=== PATIENT | male | born 2000 | race Caucasian/White ===

== ENCOUNTER 2023-07-15 19:21 | Inpatient (IN) | payer OTHER ==
[~2023-07-15] VITALS: Ht 182.9 cm; Wt 65.3 kg
[2023-07-15 20:27] LABS: BASOPHILS % (AUTO) 0.4 % (0.0-2.0); EOSINOPHILS % (AUTO) 0.7 % (1.0-6.0); HEMATOCRIT 47.2 % (41-53); HEMOGLOBIN 16.2 g/dL (13.5-17.5); LYMPHOCYTES % (AUTO) 21.3 % (22.0-44.0); MEAN CORPUSCULAR HEMOGLOBIN 29.8 pg (26.0-34.0); MEAN CORPUSCULAR HGB CONC 34.3 G/dL (31.0-37.0); MEAN CORPUSCULAR VOLUME 87 fL (80-100); MONOCYTES # (AUTO) 0.7 K/uL (0.1-1.0); MONOCYTES % (AUTO) 7.8 % (2.0-9.0); NEUTROPHILS # (AUTO) 6.6 K/uL (1.8-7.7); NEUTROPHILS % (AUTO) 69.8 % (40.0-70.0); PLATELET COUNT (AUTO) 285 K/uL (150-450); RED BLOOD CELL COUNT(AUTO) 5.44 MIL/uL (4.50-5.90); RED CELL DISTRIBUTION WIDTH 12.4 % (11.5-14.5); WHITE BLOOD COUNT (AUTO) 9.4 K/uL (4.5-11.0)
[2023-07-15] MEDS ORDERED: ACETAMINOPHEN 325 MG TABLET PO PRN (20:30)
[2023-07-15] MEDS ORDERED: ONDANSETRON HCL 4 MG/2 ML VIAL IVP PRN (20:30)
[2023-07-15 20:37] LABS: ANION GAP 8 mmol/L (8-16); CALCIUM, TOTAL 9.2 mg/dL (8.8-10.5); CARBON DIOXIDE 29 mmol/L (22-29); CHLORIDE 101 mmol/L (98-107); CREATININE 0.99 mg/dL (0.60-1.30); GLOMERULAR FILTR. RATE CALC > 60 mL/min (>60); GLUCOSE,RANDOM 89 mg/dL (70-110); POTASSIUM 4.2 mmol/L (3.5-5.1); SODIUM SERUM 138 mmol/L (136-145); UREA NITROGEN, BLOOD 14 mg/dL (7-18)
[2023-07-15 20:42] LABS: ALANINE AMINOTRANSFERASE 28 U/L (12-78); ALBUMIN 4.5 g/dL (3.4-5.0); ALKALINE PHOSPHATASE 110 U/L (46-116); ASPARTATE AMINOTRANSFERASE 16 U/L (15-37); BILIRUBIN,TOTAL 0.6 mg/dL (0.1-1.0); TOTAL PROTEIN, SERUM 8.6 g/dL (6.4-8.2)
[2023-07-15 20:48] LABS: COVID AG,FIA SOURCE NASAL SWAB
[2023-07-15] MEDS: DOCUSATE SODIUM 100 MG CAPSULE PO SCH (21:00)
[2023-07-15 21:09] LABS: SARS-COV2 (COVID) ANTIGEN,FIA Negative (Negative)
[2023-07-15] MEDS: HEPARIN SODIUM,PORCINE 5,000 UNITS/ML VIAL SQ SCH (23:16)
[2023-07-16] MEDS ORDERED: SODIUM CHLORIDE 3% 15 ML NEB SOLUTION NEB ONE (07:07)
[2023-07-16 07:56] LABS: BASOPHILS % (AUTO) 0.6 % (0.0-2.0); EOSINOPHILS % (AUTO) 2.2 % (1.0-6.0); HEMATOCRIT 47.7 % (41-53); HEMOGLOBIN 16.4 g/dL (13.5-17.5); LYMPHOCYTES # (AUTO) 2.2 K/uL (1.0-4.8); LYMPHOCYTES % (AUTO) 29.2 % (22.0-44.0); MEAN CORPUSCULAR HEMOGLOBIN 29.7 pg (26.0-34.0); MEAN CORPUSCULAR HGB CONC 34.3 G/dL (31.0-37.0); MEAN CORPUSCULAR VOLUME 87 fL (80-100); MONOCYTES # (AUTO) 0.7 K/uL (0.1-1.0); MONOCYTES % (AUTO) 8.8 % (2.0-9.0); NEUTROPHILS # (AUTO) 4.5 K/uL (1.8-7.7); NEUTROPHILS % (AUTO) 59.2 % (40.0-70.0); PLATELET COUNT (AUTO) 257 K/uL (150-450); RED BLOOD CELL COUNT(AUTO) 5.51 MIL/uL (4.50-5.90); RED CELL DISTRIBUTION WIDTH 12.8 % (11.5-14.5); WHITE BLOOD COUNT (AUTO) 7.5 K/uL (4.5-11.0)
[2023-07-16 08:06] LABS: ANION GAP 6 mmol/L (8-16); CARBON DIOXIDE 30 mmol/L (22-29); CHLORIDE 103 mmol/L (98-107); CREATININE 1.07 mg/dL (0.60-1.30); GLOMERULAR FILTR. RATE CALC > 60 mL/min (>60); GLUCOSE,RANDOM 94 mg/dL (70-110); POTASSIUM 4.1 mmol/L (3.5-5.1); SODIUM SERUM 139 mmol/L (136-145); UREA NITROGEN, BLOOD 11 mg/dL (7-18)
[2023-07-16 11:55] VITALS: BP 115/67; PULSE 70; RESP 18; TEMP 97.8
[2023-07-16 19:48] VITALS: BP 133/79; PULSE 80; RESP 18; TEMP 97.9
[2023-07-17 01:29] VITALS: BP 104/61; PULSE 60; RESP 18; TEMP 98.3
[2023-07-17 03:06] LABS: HIV 1-2 SCREEN 4TH GEN W/RFLX Non Reactive (Non Reactive)
[2023-07-17 04:40] VITALS: BP 107/72; PULSE 61; RESP 18; TEMP 97.7
[2023-07-17 08:00] VITALS: BP 112/66; PULSE 68; RESP 18; TEMP 98.2
[2023-07-17 13:12] LABS: MTB PCR w/Rif. Resistance-SPUT NOT DETECTED (Not Detectd)
[2023-07-17 14:06] LABS: QUANTIFERON+, Nil Value 0.08 IU/mL; QUANTIFERON+,Mitogen Value >10.00 IU/mL; QUANTIFERON+,TB1 Antigen Value 1.23 IU/mL; QUANTIFERON+,TB2 Antigen Value 1.54 IU/mL; QUANTIFERON, TB GOLD PLUS Positive (Negative)
[2023-07-17 16:51] VITALS: BP 112/69; PULSE 67; RESP 19; TEMP 97.6
[2023-07-17 20:33] VITALS: BP 154/77; PULSE 71; RESP 19; TEMP 98
[2023-07-17 23:28] VITALS: BP 100/57; PULSE 60; RESP 18; TEMP 97.7
[2023-07-18 05:12] VITALS: BP 102/57; PULSE 64; RESP 1; TEMP 97.8
[2023-07-18 08:00] VITALS: BP 117/68; PULSE 75; RESP 18; TEMP 98
[2023-07-18 17:15] VITALS: BP 118/69; PULSE 71; RESP 18; TEMP 98
[2023-07-18 20:31] VITALS: BP 107/67; PULSE 64; RESP 18; TEMP 97.8
[2023-07-19 00:26] VITALS: BP 99/62; PULSE 53; RESP 18; TEMP 97.7
[2023-07-19 05:35] VITALS: BP 95/53; PULSE 60; RESP 18; TEMP 98.1
[2023-07-19 09:27] VITALS: BP 100/73; PULSE 78; RESP 17; TEMP 97.8
[2023-07-19 11:35] VITALS: BP 119/63; PULSE 87; RESP 18; TEMP 98
[2023-07-19 18:17] VITALS: BP 117/79; PULSE 84; RESP 17; TEMP 98.4
[2023-07-19 20:29] VITALS: BP 103/66; PULSE 66; RESP 17; TEMP 98.1
[2023-07-20 00:10] VITALS: BP 99/68; PULSE 62; RESP 18; TEMP 97.8
[2023-07-20 05:32] VITALS: BP 105/64; PULSE 57; RESP 18; TEMP 97.5
[2023-07-20 09:50] VITALS: BP 110/67; PULSE 58; RESP 19; TEMP 98
[2023-07-20 11:56] VITALS: BP 106/58; PULSE 66; RESP 18; TEMP 98.8
[2023-07-20 15:00] VITALS: BP 111/62; PULSE 71; RESP 17; TEMP 98
[2023-07-20] MEDS: RIFAMPIN 300 MG CAPSULE PO SCH (15:27)
[2023-07-20] MEDS: ISONIAZID 300 MG TABLET PO SCH (15:27)
[2023-07-20] MEDS: ETHAMBUTOL HCL 400 MG TABLET PO SCH (15:28)
[2023-07-20] MEDS: PYRAZINAMIDE 500 MG TABLET PO SCH (15:28)
[2023-07-20] MEDS: PYRIDOXINE HCL 50 MG TABLET PO SCH (15:29)
[2023-07-20 15:36] LABS: BASOPHILS % (AUTO) 0.4 % (0.0-2.0); EOSINOPHILS % (AUTO) 1.2 % (1.0-6.0); HEMATOCRIT 49.5 % (41-53); LYMPHOCYTES # (AUTO) 2.1 K/uL (1.0-4.8); LYMPHOCYTES % (AUTO) 22.7 % (22.0-44.0); MEAN CORPUSCULAR HEMOGLOBIN 29.7 pg (26.0-34.0); MEAN CORPUSCULAR HGB CONC 34.3 G/dL (31.0-37.0); MEAN CORPUSCULAR VOLUME 87 fL (80-100); MONOCYTES # (AUTO) 0.7 K/uL (0.1-1.0); MONOCYTES % (AUTO) 7.3 % (2.0-9.0); NEUTROPHILS # (AUTO) 6.4 K/uL (1.8-7.7); NEUTROPHILS % (AUTO) 68.4 % (40.0-70.0); PLATELET COUNT (AUTO) 280 K/uL (150-450); RED BLOOD CELL COUNT(AUTO) 5.72 MIL/uL (4.50-5.90); RED CELL DISTRIBUTION WIDTH 12.8 % (11.5-14.5); WHITE BLOOD COUNT (AUTO) 9.3 K/uL (4.5-11.0)
[2023-07-20 15:40] LABS: ALANINE AMINOTRANSFERASE 25 U/L (12-78); ALBUMIN 4.3 g/dL (3.4-5.0); ALKALINE PHOSPHATASE 109 U/L (46-116); ANION GAP 5 mmol/L (8-16); ASPARTATE AMINOTRANSFERASE 14 U/L (15-37); BILIRUBIN,TOTAL 0.5 mg/dL (0.1-1.0); CARBON DIOXIDE 31 mmol/L (22-29); CHLORIDE 102 mmol/L (98-107); CREATININE 0.95 mg/dL (0.60-1.30); GLOMERULAR FILTR. RATE CALC > 60 mL/min (>60); GLUCOSE,RANDOM 104 mg/dL (70-110); POTASSIUM 4.3 mmol/L (3.5-5.1); SODIUM SERUM 138 mmol/L (136-145); TOTAL PROTEIN, SERUM 8.4 g/dL (6.4-8.2); UREA NITROGEN, BLOOD 11 mg/dL (7-18)
[2023-07-20 20:41] VITALS: BP 114/71; PULSE 68; RESP 18; TEMP 98.1
[2023-07-21 05:27] VITALS: BP 99/57; PULSE 71; RESP 18; TEMP 97.5
[2023-07-21 09:53] LABS: MTB PCR w/Rif. Resistance-SPUT NOT DETECTED (Not Detectd)
[2023-07-21 09:55] LABS: MTB PCR w/Rif. Resistance-SPUT NOT DETECTED (Not Detectd)
[2023-07-21 11:26] VITALS: BP 117/61; PULSE 77; RESP 18; TEMP 98
[2023-07-21 16:14] VITALS: BP 102/65; PULSE 65; RESP 18; TEMP 98
== END 2023-07-21 20:25 | DRG 193 ==
LOC: EMS 19:25 → 5S 07-16 06:44
PROVIDERS: ADMIT Internal Medicine; ATTEND Internal Medicine
DX: J18.9 Pneumonia, unspecified organism (principal); E43 Unspecified severe protein-calorie malnutrition; Z68.1 Body mass index [BMI] 19.9 or less, adult; Z20.822 Contact with and (suspected) exposure to COVID-19; R76.12 Nonspecific reaction to cell mediated immunity measurement of gamma interferon antigen response without active tuberculosis
CPT/HCPCS: 71046; 71250; 80048; 80053; 83735; 85025; 86480; 87015; 87206; 87389; 87556; 94640; 99285; J1644; 36415-L1; 36415-TC